=== PATIENT | male | born 2005 | race Caucasian/White ===

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

== ENCOUNTER 2024-08-10 12:10 | Outpatient (AMB) | payer OTHER, SELFPAY ==
[2024-08-10 12:51] VITALS: BP 124/80; PULSE 64; TEMP 36.7; O2SAT 98; BMI 22.8
--- NOTE | 2024-08-10 12:51 | MHC.OFFWIV ---
Intake Vital Signs 08/10/24 12:51 Height 5 ft 8 in Weight 150 lb BMI 22.8 BP 124/80 Blood Pressure Location Rt brachial Position Sitting Pulse 64 Pulse Source Pulse Oximeter Temp 98.0 F Temp Source Oral Pulse Oximetry (%) 98 Oxygen Delivery Method Room Air Intake Visit Reasons: [employer] Something stuck in lt eye Allergies No Known Allergies Allergy (Verified 07/07/22 02:07) HPI HPI Comments History of Present Illness Details Patient is a 19-year-old male complaining of something being stuck in his left eye. 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 He states it is very painful and itchy and he can not seem to get it out. He tried using a Q-tip but that did not work. He has not done and eye wash. States he does not wear contacts and he does not see an top lift compresser Review of Systems Const All systems reviewed & are unremarkable except as noted in HPI and below Physical Exam Vital Signs: Last Vital Signs Temp 98.0 F 08/10/24 12:51 Pulse 64 08/10/24 12:51 BP 124/80 08/10/24 12:51 Pulse Ox 98 08/10/24 12:51 Oxygen Delivery Method Room Air 08/10/24 12:51 BMI result Body Mass Index 22.8 Const General: cooperative, healthy appearing, comfortable and no acute distress Orientation/consciousness: patient oriented x3 Limitations: no limitations HEENT Head: Yes normal to inspection Face and sinus: Yes normal facial exam Eyes Conjunctivae: conjunctival abnormal left conjunctival injection Corneas: corneas abnormal on the left abrasion linear and at the following clock position (12 and 3) and fluorescein used Neck Neck: Yes normal visual inspection, Yes full ROM and Yes no lymphadenopathy Resp Effort & Inspection: normal respiratory effort and able to speak in complete sentences Skin General skin exam: no rashes or lesions noted Neuro General: patient oriented x3 Assessment & Plan Assessment & Plan (1) Corneal abrasion: Code(s): S05.00XA - Injury of conjunctiva and corneal abrasion without foreign body, unspecified eye, initial encounter Qualifiers: Encounter type: initial encounter Laterality: left Qualified Code(s): S05.02XA - Injury of conjunctiva and corneal abrasion without foreign body, left eye, initial encounter Plan: To corneal abrasions at 12:00 o'clock and 03:00 o'clock, explained to patient how to use the erythromycin ointment. Recommended if he has any changes in his vision, the pain gets worse, to use a low threshold to go to the emergency department or call an top lift compresser to be evaluated. Plan See above Medications: New erythromycin Apply to left eye 4 times a day while awake for 5 days 0.5 inches ophthalmic (eye) QID 3.5 grams 0RF Coding Level of Care Code New Pt Level 3 (40955) Diagnoses Abrasion of left cornea, initial encounter S05.02XA Encounter type: initial encounter Laterality: left
== END 2024-08-10 13:56 | disposition home or self-care (01) ==
PROVIDERS: Visit Provider Physician Assistant
DX: S05.02XA Injury of conjunctiva and corneal abrasion without foreign body, left eye, initial encounter (principal)

== ENCOUNTER → 2024-08-10 12:10 | Outpatient (BNVA) | payer OTHER, SELFPAY | PROVIDERS: Visit Provider Physician Assistant | DX: S05.02XA Injury of conjunctiva and corneal abrasion without foreign body, left eye, initial encounter (principal) | CPT/HCPCS: 99202 ==